=== PATIENT | female | born 1960 | race Caucasian/White ===

== ENCOUNTER 2025-02-05 18:31 | Inpatient (IN) | payer MEDICARE ==
[~2025-02-05] VITALS: Ht 167.6 cm; Wt 104.8 kg
[2025-02-05 19:11] LABS: BASO # 0.0 10^3/uL (0.0-0.2); BASO % 0.2 % (0.0-1.0); EOS # 0.0 10^3/uL (0.0-0.5); EOS % 0.2 % (0.0-3.0); LYMPH # 0.4 10^3/uL (1.5-5.0); LYMPH % 2.3 % (24.0-44.0); MONO # 0.5 10^3/uL (0.0-0.8); MONO % 3.2 % (2.0-8.0); NEUTROPHILS # 15.1 10^3/uL (1.5-8.5); NEUTROPHILS % 93.5 % (36.0-66.0); PLATELET COUNT, AUTOMATED 244 10^3/uL (150-450)
[2025-02-05 19:35] LABS: ALT/SGPT 23 U/L (7.0-40); AST/SGOT 24 U/L (<34); CALCIUM LEVEL 10.4 MG/DL (8.3-10.6); CARBON DIOXIDE LEVEL 26 MMOL/L (20-31); CHLORIDE LEVEL 101 MMOL/L (98-107); CREATININE FOR GFR 2.15 MG/DL (0.55-1.30); GLOMERULAR FILTRATION RATE 25.1 (>45); POTASSIUM SERUM 4.7 MMOL/L (3.5-5.1); SODIUM LEVEL 138 MMOL/L (136-145)
[2025-02-05] MEDS: ACETAMINOPHEN *IV* 1,000 MG in IV 1 EA IV ONE (20:02)
[2025-02-05] MEDS ORDERED: METO1TAB7 PO (20:34)
[2025-02-05] MEDS ORDERED: FURO20TA2 PO (20:34)
[2025-02-05] MEDS ORDERED: ALLO100T PO (20:34)
[2025-02-05] MEDS ORDERED: GABA-1172 PO (20:34)
[2025-02-05] MEDS ORDERED: PANT40TA29 PO (20:34)
[2025-02-05] MEDS ORDERED: LISD70CA PO (20:34)
[2025-02-05] MEDS ORDERED: POTA1TAB23 PO (20:34)
[2025-02-05] MEDS ORDERED: MAG-400T7 PO (20:34)
[2025-02-05] MEDS ORDERED: BUPR150T12 PO (20:34)
[2025-02-05] MEDS ORDERED: FARX1TAB3 PO (20:34)
[2025-02-05] MEDS ORDERED: ATOR1TAB21 PO (20:34)
[2025-02-05] MEDS ORDERED: LISI20TA33 PO (20:34)
[2025-02-05] MEDS ORDERED: OXYB5TAB14 PO (20:34)
[2025-02-05] MEDS ORDERED: HOME MED LIST COMPLETE! XX SCH (20:40)
[2025-02-05 20:51] LABS: CK-MB VALUE MASS < 1.0 NG/ML (<3.6); ETHYL ALCOHOL (ETHANOL) < 0.003 % (0.000-0.010)
[2025-02-05 20:52] LABS: CPK CREATINE PHOSPHOKINASE 26 U/L (34-145)
[2025-02-05 21:23] LABS: INR 1.08
[2025-02-05 21:32] LABS: ERYTHROCYTE SEDIMENTATION RATE 102 mm/hr (0-30)
[2025-02-05] MEDS: LR 1,000 ML IV ONE (21:39)
[2025-02-05] MEDS: cefTRIAXone SOD 1 GM in DEXTROSE 5% (D5W) ADV/MINI-BAG 50 ML IV ONE (21:39)
[2025-02-05 22:02] LABS: C REACTIVE PROTEIN QUANTITATIV 3.13 MG/DL (<1.0)
[2025-02-05 23:50] LABS: KETONE, URINE AUTO RFX NEGATIVE (NEGATIVE); LEUKOCYTE ESTERASE UR AUTO RFX NEGATIVE (NEGATIVE); MUCUS, URINE RFX SMALL (NEGATIVE); NITRITE, URINE AUTO RFX NEGATIVE (NEGATIVE); RBC, URINE AUTO RFX TNTC /HPF (0-3); SQUAM EPITHELIAL CELL UR AURFX 0 /HPF (0-6); WBC, URINE AUTO RFX 4 /HPF (0-3); YEAST LIKE CELL URINE AUTO RFX SMALL
[2025-02-05 23:52] LABS: BARBITURATES URINE NEGATIVE (NEGATIVE); BENZODIAZEPINES URINE NEGATIVE (NEGATIVE); CANNABINOIDS URINE NEGATIVE (NEGATIVE); COCAINE METABOLITE URINE NEGATIVE (NEGATIVE); METHADONE URINE NEGATIVE (NEGATIVE); OPIATES URINE NEGATIVE (NEGATIVE); PHENCYCLIDINE URINE NEGATIVE (NEGATIVE)
[2025-02-06] VITALS (7 sets, daily range): BP systolic 85–131; BP diastolic 42–80; TEMP 97.4–99.3; O2SAT 92–100
[2025-02-06 00:36] LABS: AMPHETAMINES LEVEL URINE POSITIVE (NEGATIVE)
[2025-02-06] MEDS: NS (Normal Saline) 0.9% 1,000 ML IV SCH (03:10)
[2025-02-06] MEDS: FLUCONAZOLE 50 MG TABLET PO ONE (04:09)
[2025-02-06] MEDS: ACETAMINOPHEN 325 MG TAB PO PRN (04:09)
[2025-02-06] MEDS: IBUPROFEN 400 MG TAB PO ONE (05:17)
[2025-02-06 05:51] LABS: ESTIMATED AVERAGE GLUCOSE 105.0 MG/DL (60-110)
[2025-02-06] MEDS: NS (Normal Saline) 0.9% 500 ML IV STA (06:45)
[2025-02-06] MEDS ORDERED: FLUID PLACE HOLDER IV SCH (06:45)
[2025-02-06] MEDS ORDERED: VANCOMYCIN HCL IV SCH (06:45)
[2025-02-06] MEDS ORDERED: VANCOMYCIN HCL 2,000 MG, VIAL MATE ADAPTER 1 EACH in NS 500 ML IV ONE (07:00)
[2025-02-06] MEDS: ENOXAPARIN 40 MG/0.4 ML SYRINGE (J1650 PER 10MG) SC SCH (08:11)
[2025-02-06] MEDS: VANCOMYCIN HCL 1,000 MG, VIAL MATE ADAPTER 1 EACH in NS 250 ML IV ONE (08:11)
[2025-02-06 08:28] LABS: CALCIUM LEVEL 9.9 MG/DL (8.3-10.6); CARBON DIOXIDE LEVEL 23.0 MMOL/L (20-31); CHLORIDE LEVEL 103.0 MMOL/L (98-107); CREATININE FOR GFR 2.07 MG/DL (0.55-1.30); GLOMERULAR FILTRATION RATE 26.3 (>45); POTASSIUM SERUM 4.4 MMOL/L (3.5-5.1); SODIUM LEVEL 139.0 MMOL/L (136-145)
[2025-02-06] MEDS: CEFEPIME HCL 2 GM in DEXTROSE 5% (D5W) ADV/MINI-BAG 50 ML IV SCH (09:55)
[2025-02-06] MEDS: VANCOMYCIN HCL 1,000 MG, VIAL MATE ADAPTER 1 EACH in NS 250 ML IV SCH (12:32)
[2025-02-06] MEDS: LR 1,000 ML IV ONE (14:38)
[2025-02-06] MEDS: HYDROCORTISONE 100 MG/2 ML VIAL IV ONE (14:58)
[2025-02-06] MEDS ORDERED: cefTRIAXone SOD 1 GM in DEXTROSE 5% (D5W) ADV/MINI-BAG 50 ML IV SCH (21:00)
[2025-02-07 03:07] VITALS: BP 132/81; TEMP 98.3; O2SAT 92
[2025-02-07 05:10] LABS: PLATELET COUNT, AUTOMATED 170 10^3/uL (150-450)
[2025-02-07] MEDS: HYDROCORTISONE 100 MG/2 ML VIAL IV SCH (05:43)
[2025-02-07 05:44] LABS: ALT/SGPT 19.0 U/L (7.0-40); AST/SGOT 31.0 U/L (<34); CALCIUM LEVEL 9.0 MG/DL (8.3-10.6); CARBON DIOXIDE LEVEL 23.0 MMOL/L (20-31); CHLORIDE LEVEL 106.0 MMOL/L (98-107); CREATININE FOR GFR 2.53 MG/DL (0.55-1.30); GLOMERULAR FILTRATION RATE 20.7 (>45); POTASSIUM SERUM 4.6 MMOL/L (3.5-5.1); SODIUM LEVEL 139.0 MMOL/L (136-145)
[2025-02-07 08:27] VITALS: BP 105/52; TEMP 97.1; O2SAT 94
[2025-02-07 12:00] VITALS: BP 162/66; TEMP 97.2; O2SAT 100
[2025-02-07 16:00] VITALS: BP_SYST 130; BP_DIAS 60; BP_DIAS 64; TEMP 97.3; O2SAT 96
[2025-02-07 20:03] VITALS: BP 124/62; TEMP 97; O2SAT 97
[2025-02-07] MEDS: MAGNESIUM OXIDE 400 MG TAB PO SCH (20:37)
[2025-02-07] MEDS: GABAPENTIN 300 MG CAP PO SCH (20:38)
[2025-02-07 23:49] VITALS: BP 113/56; TEMP 97.1; O2SAT 95
[2025-02-08 03:41] LABS: KETONE, URINE AUTO RFX NEGATIVE (NEGATIVE); LEUKOCYTE ESTERASE UR AUTO RFX NEGATIVE (NEGATIVE); NITRITE, URINE AUTO RFX NEGATIVE (NEGATIVE); RBC, URINE AUTO RFX TNTC /HPF (0-3); SQUAM EPITHELIAL CELL UR AURFX 9 /HPF (0-6); YEAST LIKE CELL URINE AUTO RFX LARGE
[2025-02-08 03:42] LABS: WBC, URINE AUTO RFX 49 /HPF (0-3)
[2025-02-08 04:00] VITALS: BP 117/66; TEMP 97.5; O2SAT 96
[2025-02-08 05:23] LABS: VANCOMYCIN RANDOM 13.5 UG/ML
[2025-02-08 07:32] LABS: CALCIUM LEVEL 8.6 MG/DL (8.3-10.6); CARBON DIOXIDE LEVEL 18.0 MMOL/L (20-31); CHLORIDE LEVEL 109.0 MMOL/L (98-107); CREATININE FOR GFR 2.26 MG/DL (0.55-1.30); GLOMERULAR FILTRATION RATE 23.7 (>45); POTASSIUM SERUM 3.9 MMOL/L (3.5-5.1); SODIUM LEVEL 140.0 MMOL/L (136-145)
[2025-02-08 08:11] VITALS: BP 142/63; TEMP 97; O2SAT 96
[2025-02-08] MEDS: VANCOMYCIN HCL 750 MG, VIAL MATE ADAPTER 1 EACH in NS 250 ML IV SCH (08:46)
[2025-02-08] MEDS: METOPROLOL SUCC. 50 MG *XL* TAB PO SCH (08:46)
[2025-02-08] MEDS: buPROPion **XL** 150 MG TABLET PO SCH (08:46)
[2025-02-08] MEDS: PANTOPRAZOLE 40MG TAB PO SCH (08:46)
[2025-02-08] MEDS: ATORVASTATIN 20 MG TAB PO SCH (08:46)
[2025-02-08] MEDS: POTASSIUM CHLORIDE 10MEQ SR TABLET PO SCH (08:47)
[2025-02-08] MEDS: DAPAGLIFLOZIN PROPANEDIOL 10 MG TABLET PO SCH (08:47)
[2025-02-08] MEDS: FUROSEMIDE 20 MG TAB PO SCH (08:47)
[2025-02-08 12:00] VITALS: BP 135/69; TEMP 97; O2SAT 98
[2025-02-08] MEDS: SODIUM BICARBONATE 325 MG TAB PO SCH (12:33)
[2025-02-08 14:18] LABS: CHLORIDE,RANDOM URINE 35 MMOL/L
[2025-02-08 14:35] LABS: SODIUM,RANDOM URINE < 10 MMOL/L; TOTAL PROTEIN,RANDOM URINE 427.5 MG/DL (0.0-14.0)
[2025-02-08 16:00] VITALS: BP 127/60; TEMP 97; O2SAT 98
[2025-02-08 19:54] VITALS: BP 125/75; TEMP 97.2; O2SAT 100
[2025-02-08 20:00] VITALS: BP 125/75; TEMP 97.2; O2SAT 100
[2025-02-09] VITALS (7 sets, daily range): BP systolic 119–148; BP diastolic 60–78; TEMP 96.4–97.2; O2SAT 95–99
[2025-02-09 05:42] LABS: PLATELET COUNT, AUTOMATED 203 10^3/uL (150-450)
[2025-02-09] MEDS: VANCOMYCIN HCL 500 MG in DEXTROSE 5% (D5W) MINI-BAG PLU 100 ML IV SCH (09:26)
[2025-02-09] MEDS: SODIUM BICARBONATE 325 MG TAB PO SCH (09:28)
[2025-02-09] MEDS: NS (Normal Saline) 0.9% 1,000 ML IV SCH (09:36)
[2025-02-09] MEDS ORDERED: SODIUM BICARBONATE 150 MEQ in STERILE WATER LITER BAG 1,000 ML IV SCH (10:30)
[2025-02-09 18:19] LABS: CALCIUM LEVEL 9.0 MG/DL (8.3-10.6); CARBON DIOXIDE LEVEL 18.0 MMOL/L (20-31); CHLORIDE LEVEL 110.0 MMOL/L (98-107); CREATININE FOR GFR 1.9 MG/DL (0.55-1.30); GLOMERULAR FILTRATION RATE 29.1 (>45); MAGNESIUM LEVEL 2.0 MG/DL (1.8-2.4); POTASSIUM SERUM 3.8 MMOL/L (3.5-5.1); SODIUM LEVEL 140.0 MMOL/L (136-145)
[2025-02-09] MEDS: MUPIROCIN 2% OINT 22 GM TUBE TOP SCH (21:38)
[2025-02-10 03:39] VITALS: BP 142/83; TEMP 97; O2SAT 95
[2025-02-10 06:56] LABS: VANCOMYCIN RANDOM 14.6 UG/ML
[2025-02-10 06:57] LABS: CALCIUM LEVEL 8.8 MG/DL (8.3-10.6); CARBON DIOXIDE LEVEL 19.0 MMOL/L (20-31); CHLORIDE LEVEL 114.0 MMOL/L (98-107); CREATININE FOR GFR 1.93 MG/DL (0.55-1.30); GLOMERULAR FILTRATION RATE 28.6 (>45); POTASSIUM SERUM 3.7 MMOL/L (3.5-5.1); SODIUM LEVEL 144.0 MMOL/L (136-145)
[2025-02-10] MEDS: amLODIPine 5 MG TAB PO ONE (07:35)
[2025-02-10] MEDS ORDERED: METOPROLOL TART 25 MG TABLET PO SCH (09:00)
[2025-02-10] MEDS: CEFDINIR 300 MG CAP PO SCH (09:19)
[2025-02-10] MEDS: DOXYCYCLINE HYCLATE 100 MG TABLET PO SCH (09:23)
[2025-02-10 11:02] LABS: PLATELET COUNT, AUTOMATED 236 10^3/uL (150-450)
[2025-02-10 11:24] LABS: CALCIUM LEVEL 9.1 MG/DL (8.3-10.6); CARBON DIOXIDE LEVEL 19.0 MMOL/L (20-31); CHLORIDE LEVEL 111.0 MMOL/L (98-107); CREATININE FOR GFR 1.91 MG/DL (0.55-1.30); GLOMERULAR FILTRATION RATE 28.9 (>45); POTASSIUM SERUM 3.6 MMOL/L (3.5-5.1); SODIUM LEVEL 143.0 MMOL/L (136-145)
[2025-02-10 11:35] LABS: ATYPICAL LYMPH 2 % (0-5); LYMPHOCYTES 13 % (16-44); METAMYELOCYTES 1 % (0-0); MONOCYTES 4 % (0-5); MYELOCYTES 1 % (0-0); NEUTROPHILS 78 % (28-66)
[2025-02-10 11:36] LABS: PLATELET ESTIMATE NORMAL (NORMAL)
[2025-02-10 12:00] VITALS: BP 151/69; TEMP 96.8; O2SAT 93
[2025-02-10] MEDS: CETIRIZINE 10 MG TAB PO ONE (14:09)
[2025-02-10] MEDS: SODIUM BICARBONATE 325 MG TAB PO SCH (20:09)
[2025-02-10] MEDS: amLODIPine 5 MG TAB PO SCH (20:13)
[2025-02-10 20:27] VITALS: BP 151/67; TEMP 97.2; O2SAT 98
[2025-02-11 03:43] VITALS: BP 128/74; TEMP 97; O2SAT 93
[2025-02-11 08:56] LABS: BASO # 0.0 10^3/uL (0.0-0.2); BASO % 0.1 % (0.0-1.0); EOS # 0.0 10^3/uL (0.0-0.5); EOS % 0.3 % (0.0-3.0); LYMPH # 1.7 10^3/uL (1.5-5.0); LYMPH % 11.6 % (24.0-44.0); MONO # 1.1 10^3/uL (0.0-0.8); MONO % 7.3 % (2.0-8.0); NEUTROPHILS # 10.4 10^3/uL (1.5-8.5); NEUTROPHILS % 70.1 % (36.0-66.0)
[2025-02-11 09:15] LABS: C REACTIVE PROTEIN QUANTITATIV 1.51 MG/DL (<1.0); CALCIUM LEVEL 8.9 MG/DL (8.3-10.6); CARBON DIOXIDE LEVEL 18.0 MMOL/L (20-31); CHLORIDE LEVEL 114.0 MMOL/L (98-107); CREATININE FOR GFR 1.84 MG/DL (0.55-1.30); GLOMERULAR FILTRATION RATE 30.3 (>45); POTASSIUM SERUM 4.1 MMOL/L (3.5-5.1); SODIUM LEVEL 146.0 MMOL/L (136-145)
[2025-02-11] MEDS: CETIRIZINE 10 MG TAB PO SCH (09:25)
[2025-02-11 09:26] VITALS: BP 158/80
[2025-02-11 09:30] LABS: ERYTHROCYTE SEDIMENTATION RATE 47 mm/hr (0-30)
[2025-02-11 12:00] VITALS: BP 148/66; TEMP 98.6; O2SAT 96
[2025-02-11] MEDS ORDERED: DOXY100T PO (16:38)
[2025-02-11] MEDS ORDERED: AMLO1TAB24 PO (16:38)
[2025-02-11] MEDS ORDERED: SODI325T9 PO (16:38)
[2025-02-11] MEDS ORDERED: CEFD300CAP PO (16:38)
[2025-02-11] MEDS ORDERED: TALK1KIT MC (16:39)
[2025-02-11] MEDS ORDERED: ACET-1515 PO (16:41)
[2025-02-11] MEDS ORDERED: CORT10TA PO (17:01)
== END 2025-02-11 17:56 | disposition home or self-care (01) | DRG 871 ==
LOC: M ED 18:31 → M ED INP 02-06 03:07 → EEVIPCON 02-06 03:07 → M PCU 02-06 21:56 → M MSPAV 02-09 16:57
PROVIDERS: ADMIT Internal Medicine; ATTEND General Practice
DX: A41.9 Sepsis, unspecified organism (principal); G93.41 Metabolic encephalopathy; L03.116 Cellulitis of left lower limb; N17.9 Acute kidney failure, unspecified; E27.40 Unspecified adrenocortical insufficiency; E87.21 Acute metabolic acidosis; I12.9 Hypertensive chronic kidney disease with stage 1 through stage 4 chronic kidney disease, or unspecified chronic kidney disease; F90.9 Attention-deficit hyperactivity disorder, unspecified type; M10.9 Gout, unspecified; R65.20 Severe sepsis without septic shock; E86.0 Dehydration; N18.32 Chronic kidney disease, stage 3b; E78.5 Hyperlipidemia, unspecified; R73.03 Prediabetes; K21.9 Gastro-esophageal reflux disease without esophagitis; I87.2 Venous insufficiency (chronic) (peripheral); R00.1 Bradycardia, unspecified; E66.9 Obesity, unspecified; Z68.37 Body mass index [BMI] 37.0-37.9, adult; G47.33 Obstructive sleep apnea (adult) (pediatric); Z79.899 Other long term (current) drug therapy; Z88.2 Allergy status to sulfonamides; Z88.5 Allergy status to narcotic agent